=== PATIENT | male | born 1970 | race Caucasian/White ===

== ENCOUNTER 2022-12-25 12:51 | Outpatient (CLI) | payer BC, MEDICAID, SELFPAY ==
[2022-12-25 13:18] LABS: SARS Antigen* Negative (Negative)
== END 2022-12-25 12:52 | disposition home or self-care (01) ==
PROVIDERS: PCP Family Medicine; Visit Provider Internal Medicine
DX: Z20.822 Contact with and (suspected) exposure to COVID-19 (principal)
CPT/HCPCS: 87426